=== PATIENT | female | born 1950 | race Caucasian/White ===

== ENCOUNTER 2017-03-28 16:56 | Emergency (ER) | payer MEDICARE, BC ==
--- NOTE | ~2017-03-28 | ER ---
PATIENT'S NAME: TERRIE LU [facility] AGE: 66 Y [address] ROOM: [place] [address] LOCATION: [facility] ADMIT DATE: 03/28/2017 ER/Outpatient Report DISCHARGE DATE: 03/28/2017 FAMILY PHYSICIAN: Drew Brown MD ATTENDING PHYSICIAN: Rob Mejia CHIEF COMPLAINT: Fall. HISTORY OF PRESENT ILLNESS: Ms. Lu notes that she has fallen several times over the last week the most recently today. She cannot tell me exactly why she has been falling. She feels like it is usually to the right-side. She did strike her head today and was feeling okay afterwards, but according to family, she has been more confused and slowed mentation since that time. The onset was 4:30 today. She has no focal concerns, but does have some aches and pains diffusely associated with that. PAST MEDICAL HISTORY: Documented on the record and reviewed by me. SOCIAL HISTORY: Documented on the record and reviewed by me. MEDICATIONS: Documented on the record and reviewed by me. ALLERGIES: DOCUMENTED ON THE RECORD AND REVIEWED BY ME. REVIEW OF SYSTEMS: All systems are reviewed and negative except as noted in the HPI. PHYSICAL EXAMINATION: VITAL SIGNS: Blood pressure is 138/74, pulse 64, respiratory rate is 20, temp is 96.7, and SpO2 is 95% on room air. Pain is rated 4/10. GENERAL: An age-appropriate female, upright on the exam table, in no apparent pain or distress. NEUROLOGIC: Awake and alert. GCS is 15, but she is slowed with her mentation slightly. She is able to perform complex maneuvers and past pointing with no difficulty, but with Romberg testing, the patient did fall straight backwards within 2 seconds of onset. Position sense is grossly intact otherwise. She is able to rapidly alternate her hands right slightly 0 than left. She has no difficulty with ncnb-fo-utfi testing. There is no cnc machine setter asymmetry or strength asymmetry appreciated on exam. PATIENT'S NAME: TERRIE LU [facility] AGE: 66 Y [address] ROOM: [place] [address] LOCATION: [facility] ADMIT DATE: 03/28/2017 ER/Outpatient Report DISCHARGE DATE: 03/28/2017 FAMILY PHYSICIAN: Drew Brown MD ATTENDING PHYSICIAN: Rob Mejia HEENT: Normocephalic, atraumatic. No tenderness to palpation. Eyes are PERRL. Oropharynx is clear. NECK: Supple. Trachea is midline. TMs are pearly azul without hematoma. Neck is with some tenderness, C-collar was placed. BACK: The thoracic spine was equivocally tender and there was tenderness in the lumbar spine. EXTREMITIES: Warm and well-perfused. No obvious tenderness to palpation or swelling consistent with injury of any of the major joints or long bones. SKIN: A few scratches over the knees, elbows, and shoulders, all superficial, not requiring further attention. LABORATORY DATA: Labs and x-rays were ordered and are pending including Accu-Chek. Care was transitioned to Dr. Bass at 1800 hours with no results available. EMERGENCY DEPARTMENT COURSE: Given her findings, there are multiple concerns on her differential including infection, cardiac dysrhythmia, and electrolyte or blood count abnormalities. We will evaluate those extensively. If she is feeling better, she can go home; otherwise, disposition per Dr. Bass after he completes his evaluation. CT of the head and spine are obtained as well. Again, no results available. Please see Dr. Bass's dictation for completion of evaluation. MD DIONNE PULIDO/janethl /[id number] d: 03/29/17 08 t: 04/14/17 0900, OUTPATIENT REPORT
--- NOTE | ~2017-03-28 | ER ---
PATIENT'S NAME: TERRIE JACQUES [facility] AGE: 66 Y [address] ROOM: [place] [address] LOCATION: [facility] ADMIT DATE: 03/28/2017 ER/Outpatient Report DISCHARGE DATE: 03/28/2017 FAMILY PHYSICIAN: Drew Brown MD ATTENDING PHYSICIAN: Rob Mejia HISTORY OF PRESENT ILLNESS: This patient is a 66-year-old female, who had a ground level fall, hitting her head at home. She has fallen about 4 times this week. Her daughter heard her head hit the floor. She had no loss of consciousness. Presented with a little bit confused, disoriented with head and neck pain. She initially saw Dr. Mejia here in the emergency department. Dr. Mejia did order testing. See Dr. Mejia's dictation in regard to the chief complaint, history of present illness, past medical history, physical exam. Dr. Mejia asked me to follow up with the patient's laboratory study results, x-ray study results, EKG results, final diagnosis, and treatment plan. LABORATORY DATA AND X-RAYS: Chest x-ray showed no acute infiltrate or changes. We will review x-ray with the radiologist. EKG showed sinus rhythm. No acute ST elevation, ischemic change, or arrhythmia. CT scan of the head showed no intracranial bleed, midline shift, mass effect, or skull fracture. CT scan of the cervical, lumbar, thoracic spine showed no acute fracture or subluxation but did show some degenerative changes, worse in the lumbar spine. All CT scans read by Radiology, see dictated transcribed reports. Laboratory: White count is 8100, 61 segs, 25 lymphs, 9 monos, 4 eos, 1 baso. Hemoglobin is 12.6, hematocrit 37.9, platelet count is 267,000. Pro-time is 10.3 with an INR 0.98. CMS was normal except for a slightly elevated glucose 103, low calcium of 8.0. CPK was 110. Ioiyl-bj-upsv cardiac enzymes were normal. CRP was normal less than 0.29. TSH was 1.52. Urine showed 5 to 10 whites, negative reds, 5 to 10 epithelial cells, few bacteria per high-powered field, nitrites negative. EMERGENCY DEPARTMENT COURSE: I did not give the patient any fluids, pain medications, or any other treatment plan here in the emergency department. IMPRESSION: Ground level fall with grade 1 to [address] scan of the head was negative as was her cervical, thoracic, lumbosacral spine other than degenerative changes. She continued to have a little bit of a headache and spine pain. She initially was confused but this resolved. She was able to ambulate. PATIENT'S NAME: TERRIE JACQUES [facility] AGE: 66 Y [address] ROOM: [place] [address] LOCATION: [facility] ADMIT DATE: 03/28/2017 ER/Outpatient Report DISCHARGE DATE: 03/28/2017 FAMILY PHYSICIAN: Drew Brown MD ATTENDING PHYSICIAN: Rob Mejia PLAN: The patient was discharged home. Observation. Activity as tolerated. Continue present home medications and care. Fluids and diet as tolerated. Follow up with personal physician in 4 to 5 days or sooner if needed. Discussion ensued with the patient and her daughter regarding my findings and recommendations, they understand. CONSTANTINO ANG MD SDS/modl /[id number] d: 03/28/172053 t: 03/29/171, OUTPATIENT REPORT
[~2017-03-28 16:56] MED LIST: ALLERGY RELIEF10 MG PO; CLINDAMYCIN150 MG PO; HYDRODIURIL25 MG PO; MUCINEX DM ER1 EACH PO; NORVASC5 MG PO; OMEPRAZOLE40 MG PO; PERCOCET 5-3251 EACH PO; PREMARIN0.625 MG PO; PROAIR HFA8.5 GM INH; TOPROL XL 5050 MG PO
[2017-03-28 18:08] LABS: BASOPHIL # 0.1 K/uL (0.0-0.2); BASOPHIL % 0.6 %; EOSINOPHIL # 0.3 K/uL (0.0-0.5); EOSINOPHIL % 4.1 %; HEMATOCRIT 37.9 % (33.0-46.0); HEMOGLOBIN 12.6 g/dL (10.0-15.0); IMMATURE GRANULOCYTE % 0.2 %; LYMPHOCYTE # 2.1 K/uL (0.8-4.0); LYMPHOCYTE % 25.2 %; MCH 30.2 pg (27.0-34.0); MCHC 33.2 gm/dL (32.0-36.5); MCV 90.9 fl (83.0-98.0); MONOCYTE # 0.8 K/uL (0.0-1.0); MONOCYTE % 9.2 %; MPV 9.3 fl (9.4-12.4); NEUTROPHIL # (ANC) 4.9 K/uL (1.8-7.8); NEUTROPHIL % 60.7 %; NRBC % 0 /100WBC (0-0.00); PLATELET COUNT 267 K/uL (150-450); RBC 4.17 M/uL (3.50-5.50); RDW-CV 13.4 % (11.9-14.6); WBC 8.1 K/uL (4.0-11.0)
[2017-03-28 18:20] LABS: INR - (THERAPEUTIC) 0.98 (0.92-1.07); PROTIME 10.3 SECONDS (9.8-11.4)
[2017-03-28 18:22] LABS: ALBUMIN 3.8 gm/dL (3.5-5.0); TOTAL BILIRUBIN 0.5 mg/dL (0.0-1.5); TOTAL PROTEIN 7.6 g/dL (6.0-8.4)
[2017-03-28 18:31] LABS: CPK 110 IU/L (21-215)
[2017-03-28 19:40] LABS: BILIRUBIN URINE NEGATIVE (NEGATIVE); BLOOD URINE NEGATIVE /UL (NEGATIVE); COLOR URINE YELLOW (YELLOW); GLUCOSE URINE NEGATIVE (NEGATIVE); KETONE URINE NEGATIVE (NEGATIVE); LEUKOCYTES URINE 100 /UL (NEGATIVE); NITRITE URINE NEGATIVE (NEGATIVE); PH URINE 6.5 (4.0-8.0); PROTEIN URINE NEGATIVE (NEGATIVE); TURBIDITY URINE CLEAR (CLEAR); UROBILINOGEN URINE NORMAL (NORMAL)
[2017-03-28 19:50] LABS: BACTERIA URINE FEW (NEGATIVE); RBC URINE NEGATIVE #/HPF (NEGATIVE)
== END 2017-03-28 19:59 | disposition disaster alternative care site (69) ==
LOC: GACC 16:56
PROVIDERS: Emergency Medicine
DX: S06.0X0A Concussion without loss of consciousness, initial encounter (principal); M47.892 Other spondylosis, cervical region; M47.894 Other spondylosis, thoracic region; M47.896 Other spondylosis, lumbar region; I10 Essential (primary) hypertension; Z88.0 Allergy status to penicillin; Z88.6 Allergy status to analgesic agent; Z88.2 Allergy status to sulfonamides; Z88.1 Allergy status to other antibiotic agents; Z88.5 Allergy status to narcotic agent; Z88.8 Allergy status to other drugs, medicaments and biological substances; Z79.899 Other long term (current) drug therapy; Z90.710 Acquired absence of both cervix and uterus; W18.39XA Other fall on same level, initial encounter